=== PATIENT | male | born 2000 | race Two or more races ===

== ENCOUNTER → 2021-09-18 15:13 | Outpatient (REF) | payer OTHER, SELFPAY ==
--- NOTE | 2021-09-18 15:26 | ECG_ITS ---
Test Reason : R55 Blood Pressure : / mmHG Vent. Rate : 075 BPM Atrial Rate : 075 BPM P-R Int : 136 ms QRS Dur : 088 ms QT Int : 352 ms P-R-T Axes : 046 079 062 degrees QTc Int : 393 ms Normal sinus rhythm Normal ECG No previous ECGs available Referred By: Joe Evans Electronically Signed By:Severiano Lassiter
== END ==
LOC: HO.CARD 15:13
PROVIDERS: PCP Pediatrics; Visit Provider Pediatrics
DX: R55 Syncope and collapse (principal)
CPT/HCPCS: 93005